=== PATIENT | female | born 1980 | race Caucasian/White ===

== ENCOUNTER → 2020-01-07 | Outpatient (CLI) | payer OTHER ==
[~2020-01-07] MED LIST: ALBU90OI INH; Buspirone HCl7.5 MG; CLON.5 PO; CODACEE120 PO; DASETTA1 EAC1; DOXY100 PO; DULO60 PO; Desyrel50 MG; HYDACE5 PO; HYDCHL25 PO; HYDHOMSY PO; IBUP800 PO; LACT10SY PO; LOSA50 PO; NAPR500; NAPR550 PO; OMEP20ER PO; OXYACE5C PO; OXYACE5T PO; PRAZ1; PRED10 PO; PROM25 PO; RXNAPNA550 PO; SERT100 PO
[2020-01-09 15:09] LABS: HPV 16 Negative (Negative); HPV 18 Negative (Negative); HPV OTHER HR TYPES Positive (Negative)
== END | disposition home or self-care (01) ==
LOC: LAB 11:00 → LAB SHORT 11:00
PROVIDERS: Physician Assistant
DX: Z01.419 Encounter for gynecological examination (general) (routine) without abnormal findings (principal)
CPT/HCPCS: 87624; 87625; G0123

== ENCOUNTER 2020-05-22 09:23 | Day surgery (SDC) | payer OTHER ==
[2020-05-21 09:46] LABS: BASOPHILS ABSOLUTE AUTO 0.01 K/mm3 (0.00-0.23); BASOPHILS PERCENT AUTO 0 % (0-2); EOSINOPHILS ABSOLUTE AUTO 0.09 K/mm3 (0.00-0.68); EOSINOPHILS PERCENT AUTO 1 % (0-6); Hematocrit 42.2 % (33.0-51.0); IMMATURE GRAN ABSOLUTE AUTO 0.01 K/mm3 (0.00-0.10); IMMATURE GRAN PERCENT AUTO 0 % (0-1); LYMPHOCYTES ABSOLUTE AUTO 2.51 K/mm3 (0.84-5.20); LYMPHOCYTES PERCENT AUTO 36 % (21-46); MONOCYTES ABSOLUTE AUTO 0.61 K/mm3 (0.16-1.47); MONOCYTES PERCENT AUTO 9 % (4-13); Mean Corpuscular HGB 30.4 pg (26.0-34.0); Mean Corpuscular HGB Conc 33.2 g/dL (31.5-36.5); Mean Corpuscular Volume 92 fL (80-100); Mean Platelet Volume 10.9 fL (9.1-12.4); NEUTROPHILS PERCENT AUTO 54 % (41-73); Platelet Count 278 K/mm3 (150-400); RDW Coefficient Variation 11.8 % (11.7-14.2); RDW Standard Deviation 39.8 fL (35.1-46.3); White Blood Cell Count 6.93 K/mm3 (4.00-11.30)
[~2020-05-22] VITALS: Ht 152.4 cm; Wt 79.1 kg
[~2020-05-22 09:23] MED LIST changes: +ALEVE220 MG PO
--- NOTE | 2020-05-22 10:29 | NUR ---
Ambulatory in Day Surgery History, Chart, Medications and Allergies reviewed before start of procedure.Patient confirms NPO status and agrees with scheduled surgery. Patient reports completing Chlorhexadine shower X2 prior to admission to hospital.Surgical site prepped with 2% Chlorhexidine cloth wipe.
--- NOTE | 2020-05-22 16:06 | NUR ---
SHIFT SUMMARY: PATIENT IS POD 0 FROM A [facility]. HER VITALS HAVE BEEN WITHIN NORMAL LIMITS AND IS CURRENTLY ON ROOM AIR. HER PAIN HAS BEEN CONTROLLED WITH HER IV AND PO PAIN MEDICATIONS THAT ARE ORDERED IN [facility]. SHE IS FEELING NAUSEOUS AT THE MOMENT. I WILL OFFER HER SOME ZOFRAN, ICE PACK, AND A COLD WASH CLOTH. HER INCISIONS ARE C/D/I. SHE HAS HER FRIEND IN THE ROOM WITH HER TO KEEP HER COMPANY. CALL LIGHT IS WITHIN REACH. SHE IS A PLEASANT PATIENT. SHE IS ALERT AND ORIENTED X4. WILL CONTINUE TO MONITOR UNTIL ONCOMING NIGHTSHIFT NURSE COMES TO RECIEVE REPORT.
[2020-05-22] MEDS ORDERED: ZYRTEC10 M1 PO (16:26)
--- NOTE | 2020-05-22 20:26 | NUR ---
PT DID GET UP AND AMBULATE IN LEMON, HOWEVER STARTED VOMITING IN HALLWAY. TAKEN BACK TO ROOM, MEDICATED WITH ZOFRAN, STANFORD CARE/CATH CARE DONE. THEN PT WENT BACK AND AMBULATED A LONG DISTANCE. STATES FEELING BETTER. SITTING ON SIDE OF BED. PAIN IS TOLERABLE AT THIS TIME.
--- NOTE | 2020-05-23 04:31 | NUR ---
POD 1 S/P ROBOTIC LAP HYSTER. PT DID WELL DURING NIGHT. HAS BEEN OCCASIONALLY NAUSEATED AND VOMITED ONCE. FEELING BETTER THIS MORNING. PAIN MANAGED WITH ORAL NARCOTICS. MINIMAL VAG BLEEDING. WILL DC VYAS THIS AM AND SL IV. PLAN FOR DC TODAY. CALL LIGHT IN REACH.
[2020-05-23 04:33] LABS: BASOPHILS ABSOLUTE AUTO 0.01 K/mm3 (0.00-0.23); BASOPHILS PERCENT AUTO 0 % (0-2); EOSINOPHILS ABSOLUTE AUTO 0.02 K/mm3 (0.00-0.68); EOSINOPHILS PERCENT AUTO 0 % (0-6); Hematocrit 37.2 % (33.0-51.0); Hemoglobin 12.2 g/dL (11.5-16.0); IMMATURE GRAN ABSOLUTE AUTO 0.02 K/mm3 (0.00-0.10); IMMATURE GRAN PERCENT AUTO 0 % (0-1); LYMPHOCYTES ABSOLUTE AUTO 2.26 K/mm3 (0.84-5.20); LYMPHOCYTES PERCENT AUTO 24 % (21-46); MONOCYTES ABSOLUTE AUTO 0.93 K/mm3 (0.16-1.47); MONOCYTES PERCENT AUTO 10 % (4-13); Mean Corpuscular HGB 30.6 pg (26.0-34.0); Mean Corpuscular HGB Conc 32.8 g/dL (31.5-36.5); Mean Corpuscular Volume 93 fL (80-100); NEUTROPHILS ABSOLUTE AUTO 6.39 K/mm3 (1.96-9.15); NEUTROPHILS PERCENT AUTO 66 % (41-73); Platelet Count 249 K/mm3 (150-400); RDW Coefficient Variation 11.8 % (11.7-14.2); Red Blood Cell Count 3.99 M/mm3 (3.80-5.20); White Blood Cell Count 9.63 K/mm3 (4.00-11.30)
--- NOTE | 2020-05-23 07:40 | NUR ---
PT SITTING UP ON EDGE OF THE BED NO FLATUS GOING TO TRY AND VOID ASKED IF SHE CAN PUT ON HER BRA AND UNDERWARE STATED YES
--- NOTE | 2020-05-23 09:08 | NUR ---
PT EATING BREAKFAST
--- NOTE | 2020-05-23 10:33 | NUR ---
05/23/20 1033 Abbi Pantoja VERIFICATIONS: EDIT CHART.
--- NOTE | 2020-05-23 11:05 | NUR ---
pt resting in bed
--- NOTE | 2020-05-23 11:51 | NUR ---
Advance Directive (AD) education conducted. Patient tells me about her medical issues, her mother's by cancer and her sister's . Patient explains that no will or AD was filled out in either case and she was left to work it all out on her own. Patient talks about how her fiance, Kvng , and herself had already discussed about the need for an AD. I educated patient on the AD form, explained the filing process and the need for a notary. Patient shows signs of comprehension. I give patient 2 AD booklets (1 for herself and 1 for Kvng). Patient voices appreciation for the information and the visit.
--- NOTE | 2020-05-23 12:47 | NUR ---
wonderdesiree by to see pt
[2020-05-23] MEDS ORDERED: Percocet 5-3251 EACH PO (13:15)
[2020-05-23] MEDS ORDERED: IBUP800 PO (13:15)
[2020-05-23] MEDS ORDERED: PROM25 PO (13:16)
[2020-05-23] MEDS ORDERED: ESTRADIOL2 MG PO (13:18)
--- NOTE | 2020-05-23 13:45 | NUR ---
DISCHARGE INSTRUCTIONS REVIEWED WITH PT VERBALIZED RX GIVEN PT CALLED HER FOR A RIDE
--- NOTE | 2020-05-23 13:55 | NUR ---
WC ESCORT TO CAR NO ACUTE CHANGES
== END 2020-05-23 14:03 | disposition home or self-care (01) ==
LOC: ORSCMMR 09:23 → ORD 11:00 → ORSCMMR 11:00 → SURS 13:27 → ORSCMMR 05-23 14:03
PROVIDERS: Obstetrics & Gynecology
PROC: 0UT24ZZ Resection of Bilateral Ovaries, Percutaneous Endoscopic Approach (ICD-10-PCS; principal; 2020-05-22 11:00)
PROC: 0U5F4ZZ Destruction of Cul-de-sac, Percutaneous Endoscopic Approach (ICD-10-PCS; principal; 2020-05-22 11:00)
PROC: 8E0W4CZ Robotic Assisted Procedure of Trunk Region, Percutaneous Endoscopic Approach (ICD-10-PCS; principal; 2020-05-22 11:00)
PROC: 0UT94ZZ Resection of Uterus, Percutaneous Endoscopic Approach (ICD-10-PCS; principal; 2020-05-22 11:00)
PROC: 0UT74ZZ Resection of Bilateral Fallopian Tubes, Percutaneous Endoscopic Approach (ICD-10-PCS; principal; 2020-05-22 11:00)
DX: N92.0 Excessive and frequent menstruation with regular cycle (principal); N80.3 Endometriosis of pelvic peritoneum; N94.6 Dysmenorrhea, unspecified; N94.10 Unspecified dyspareunia; R10.2 Pelvic and perineal pain; N80.0 Endometriosis of uterus; D25.9 Leiomyoma of uterus, unspecified; N73.6 Female pelvic peritoneal adhesions (postinfective); I10 Essential (primary) hypertension; K21.9 Gastro-esophageal reflux disease without esophagitis; Z87.891 Personal history of nicotine dependence; G62.9 Polyneuropathy, unspecified; E66.9 Obesity, unspecified; Z68.33 Body mass index [BMI] 33.0-33.9, adult
CPT/HCPCS: 58571; 58662; S2900; 36415; 84702; 85025; 86850; 86900; 86901; 88307; A9270; J0690; J1100; J1885; J2250; J2405; J2704; J3010; J7120

== ENCOUNTER 2021-10-20 07:27 | Day surgery (SDC) | payer OTHER ==
[~2021-10-20] VITALS: Ht 152.4 cm; Wt 72.6 kg
[~2021-10-20 07:27] MED LIST changes: +ESTRADIOL2 MG PO; +Percocet 5-3251 EACH PO; +ZYRTEC10 M1 PO
[2021-10-20] MEDS ORDERED: GABA300 PO (08:44)
[2021-10-20] MEDS ORDERED: Robaxin750 MG PO (08:44)
[2021-10-20] MEDS ORDERED: ACET500 PO (08:45)
--- NOTE | 2021-10-20 10:08 | NUR ---
PT TO LUDIN FROM ER. REPORTS ONGOING KING SINCE MYLEOGRAM ON 10/16. LIGHTS TURNED DOWN FOR COMFORT. GIVEN EAR PLUGS TO DECREASE STIMULI.
--- NOTE | 2021-10-20 10:50 | NUR ---
PT IN L SIDE LYING POSITION. DR. KING AT BEDSIDE. EPIDURAL ACHIEVED, 20 CC OF BLOOD DRAWN FROM R AC IV, BLOOD PATCH IN PLACE s DIFFICULTY. PT ABLE TO LIE FLAT ON BACK p PROCEDURE. GLASSES REMOVED. SITTING IN UPRIGHT POSITION IN BED. REPORTS PAIN LEVEL DECREASED TO A "5/10". C/O L EYE PRESSURE. PT TALKING ON CELL PHONE. APPEARS COMFORTABLE. STARTED ON LR 1L BOLUS PER MD REQUEST.
--- NOTE | 2021-10-20 11:28 | NUR ---
PT CONTINUES TO SIT UP IN BED AND CONVERSE. DRINKING SODA. REPORTS PAIN DECREASED TO "4/10". AMBULATES TO RESTROOM c SLOW GAIT, STABLE. LR CONTINUES TO INFUSE. PENDING DC P INFUSION.
--- NOTE | 2021-10-20 11:40 | NUR ---
DR. KING VERBALIZES STABLE FOR DC. ER CONTACTED, DC INSTRUCTIONS PROVIDED BY TWIN JIANG. PT CONTINUES TO EAT, DRINK AND CONVERSE. APPEARS COMFORTABLE.
--- NOTE | 2021-10-20 11:50 | NUR ---
IV DC'D, CATH INTACT AND PRESSURE DRESSING APPLIED. GIVEN DC INSTRUCTIONS, PT AND FAMILY VERBALIZES AN UNDERSTANDING s QUESTIONS. BANDAID AT PUNCTURE SITE. NO DRAINAGE OR BLEEDING NOTED. PT DRESSED c ASSISTANCE FROM FAMILY s DIFFICULTY. TRANSFERS TO s DIFFICULTY. OTD IN NAD VIA , ESCORTED BY VY TRAVIS VOLUNTEER.
== END 2021-10-20 11:50 | disposition home or self-care (01) ==
LOC: ER 07:27 → ORSCMMR 08:55
PROVIDERS: Anesthesiology
PROC: 3E0S3GC Introduction of Other Therapeutic Substance into Epidural Space, Percutaneous Approach (ICD-10-PCS; principal; 2021-10-20 11:00)
DX: G97.1 Other reaction to spinal and lumbar puncture (principal); Q67.5 Congenital deformity of spine; Z98.1 Arthrodesis status; Z88.5 Allergy status to narcotic agent; Z79.899 Other long term (current) drug therapy
CPT/HCPCS: 99284; J7120

== ENCOUNTER → 2024-08-14 | Outpatient (CLI) | payer OTHER ==
[~2024-08-14] MED LIST changes: +ACET500 PO; +GABA300 PO; +Robaxin750 MG PO
[2024-08-14 13:00] LABS: BASOPHILS ABSOLUTE AUTO 0.01 K/mm3 (0.00-0.23); BASOPHILS PERCENT AUTO 0 % (0-2); EOSINOPHILS ABSOLUTE AUTO 0.08 K/mm3 (0.00-0.68); EOSINOPHILS PERCENT AUTO 1 % (0-6); Hematocrit 40.3 % (33.0-51.0); IMMATURE GRAN ABSOLUTE AUTO 0.01 K/mm3 (0.00-0.10); IMMATURE GRAN PERCENT AUTO 0 % (0-1); LYMPHOCYTES ABSOLUTE AUTO 2.94 K/mm3 (0.84-5.20); LYMPHOCYTES PERCENT AUTO 40 % (21-46); MONOCYTES PERCENT AUTO 7 % (4-13); Mean Corpuscular HGB 31.2 pg (26.0-34.0); Mean Corpuscular HGB Conc 34.7 g/dL (31.5-36.5); Mean Corpuscular Volume 90 fL (80-100); Mean Platelet Volume 10.8 fL (9.1-12.4); NEUTROPHILS ABSOLUTE AUTO 3.73 K/mm3 (1.96-9.15); NEUTROPHILS PERCENT AUTO 51 % (41-73); Platelet Count 308 K/mm3 (150-400); RDW Coefficient Variation 11.8 % (11.7-14.2); RDW Standard Deviation 38.5 fL (35.1-46.3); Red Blood Cell Count 4.49 M/mm3 (3.80-5.20); White Blood Cell Count 7.27 K/mm3 (4.00-11.30)
[2024-08-14 14:26] LABS: Alanine Aminotransfer (ALT/SGP 24 U/L (12-78); Albumin, Blood 3.6 g/dL (3.4-5.0); Albumin/Globulin Ratio 0.9 (0.8-1.8); Alk Phos 80 U/L (50-136); Anion Gap 8 mmol/L (3-11); Aspartate Aminotrans (AST/SGOT 20 U/L (12-37); Bilirubin, Total 0.6 mg/dL (0.1-1.0); Blood Urea Nitrogen 12 mg/dL (8-24); Bun/Creatinine Ratio 20.6 (12.0-20.0); CO2, Blood 27 mmol/L (21-32); Calcium, Blood 9.1 mg/dL (8.5-10.1); Chloride, Blood 105 mmol/L (98-108); Cholesterol 216 mg/dL (50-200); Creatinine, Blood 0.58 mg/dL (0.40-1.00); Globulin, Blood 3.9 g/dL (2.2-4.0); Glomerular Filtration Rate 114 (60-); Glucose, Blood 98 mg/dL (70-99); HDL Cholesterol 71 mg/dL (>39); LDL/HDL RATIO 1.8; Low Density Lipoprotein Chol 131 mg/dL (0-110); Sodium, Blood 136 mmol/L (136-145); Total Protein, Blood 7.5 g/dL (6.4-8.2); Triglycerides 69 mg/dL (30-160); Very Low Density Lipoprot Chol 13 mg/dL (6-32)
== END ==
LOC: LAB 12:17 → LAB SHORT 12:17
PROVIDERS: Family Medicine
DX: E66.09 Other obesity due to excess calories (principal)
CPT/HCPCS: 80053; 80061; 82306; 85025

== ENCOUNTER 2025-07-03 06:52 | Day surgery (SDC) | payer OTHER ==
[2025-07-03] VITALS (14 sets, daily range): BP systolic 100–146; BP diastolic 73–98
[~2025-07-03] VITALS: Ht 154.9 cm; Wt 75.3 kg
[~2025-07-03 06:52] MED LIST changes: +CETI5 PO
[2025-07-03] MEDS ORDERED: DOTTI1 EA19 TOP (07:11)
--- NOTE | 2025-07-03 07:30 | NUR ---
Patient States Post-Procedure ride home has been arranged. Patient confirms NPO status and agrees with scheduled surgery. Patient states colon prep results clear. Pre-Op teaching done. Pt verbalizes understanding.
--- NOTE | 2025-07-03 07:38 | NUR ---
07/03/25 0738 Milad Baires CONFIRMED AND REVIEWED H&P, MEDCICATIONS, ALLERGIES, MEDICAL HISTORY, RESPIRATORY HISTORY, VITAL SIGNS, 3-LEAD EKG, CONSENTS, AND PHYSICIAN ORDERS. PATIENT CONFIRMS NPO STATUS AND AGREES WITH SCHEDULED PROCEDURE. MONITOR INTACT WITH CONTINUOUS PULSE OXIMETRY, CAPNOGRAPHY, 3-LEAD EKG, INTERMITTENT BP. SUPPLEMENTAL O2 TO BE TITRATED THROUGHOUT PROCEDURE TO MAINTAIN O2 SATURATION ABOVE 90%. PATIENT DETERMINED TO BE ASA APPROPRIATE FOR PROPOFOL SEDATION PRIOR TO START OF PROCEDURE BY DR. MARKS
[2025-07-03] MEDS ORDERED: Midazolam HCl 1MG / ML 2ML Vial ONE (08:08)
== END 2025-07-03 08:40 | disposition home or self-care (01) ==
LOC: ORSCMMR 06:52 → ORD 08:00 → ORSCMMR 08:00
PROVIDERS: Internal Medicine Gastroenterology
PROC: 0DBM8ZX Excision of Descending Colon, Via Natural or Artificial Opening Endoscopic, Diagnostic (ICD-10-PCS; principal; 2025-07-03 08:00)
DX: Z12.11 Encounter for screening for malignant neoplasm of colon (principal); K63.5 Polyp of colon; K21.9 Gastro-esophageal reflux disease without esophagitis
CPT/HCPCS: 88305; J2250; J2704; J7120